=== PATIENT | female | born 1955 | race Caucasian/White ===

== ENCOUNTER 2017-10-31 14:14 | Inpatient (IN) | payer BC ==
[2017-10-31] MEDS ORDERED: 0.9 % SODIUM CHLORIDE 1000ML 1,000 ML IV PRN (15:19)
--- NOTE | 2017-10-31 15:23 | Emergency Department Record ---
History of Present Illness - General Chief Complaint: Abdominal Pain Stated Complaint: DIVERTICULITIS FLAIR UP, DIZINESS,SPOTS IN EYS Time Seen by Provider: 10/31/17 15:08 Source: Patient, RN notes reviewed Mode of Arrival: Ambulatory - History of Present Illness Initial Comments: left lower quad pain and history of diverticulitis. Onset/Timin -: Days(s) Location: LLQ Radiation: RLQ Severity: Moderate Severity scale (1-10): 8 Quality: Sharp Consistency: Constant Improves With: Nothing Worsens With: Nothing Associated Symptoms: Chills, Nausea - Related Data Allergies Allergy/AdvReac Type Severity Reaction Status Date / Time atorvastatin calcium Allergy Severe chest pain Verified 10/31/17 14:28 [From Lipitor] clindamycin Allergy Severe HIVES Verified 10/31/17 14:28 penicillin V Allergy Severe ANAPHYLAXIS Verified 10/31/17 14:28 codeine Allergy Intermediate RASH Verified 10/31/17 14:28 naproxen Allergy Intermediate RASH Verified 10/31/17 14:28 lisinopril Allergy Mild DESHAWN COUGH Verified 10/31/17 14:28 ciprofloxacin [From Cipro] Allergy RASH Verified 10/31/17 16:50 SSRIs Allergy Intermediate NAUSEA Uncoded 10/04/14 09:12 Travel Screening - Travel/Exposure Within Last 30 Days Have you traveled within the last 30 days?: No Review of Systems Reviewed: No additional complaints except as noted below Constitutional: Reports: As per HPI. Denies: Chills, Fever, Malaise, Night sweats, Weakness, Weight change Eyes: Reports: As per HPI. Denies: Eye discharge, Eye pain, Photophobia, Vision change ENT: Reports: As per HPI. Denies: Congestion, Dental pain, Ear pain, Epistaxis , Hearing loss, Throat pain Respiratory: Reports: As per HPI. Denies: Cough, Dyspnea, Hemoptysis, Stridor, Wheezes Cardiovascular: Reports: As per HPI. Denies: Arrhythmia, Chest pain, Dyspnea on exertion, Edema, Murmurs, Orthopnea, Palpitations, Paroxysmal nocturnal dyspnea, Rheumatic Fever, Syncope Endocrine: Reports: As per HPI. Denies: Fatigue, Heat or cold intolerance, Polydipsia, Polyuria Gastrointestinal: Reports: As per HPI, Abdominal pain. Denies: Constipation, Diarrhea, Hematemesis, Hematochezia, Melena, Nausea, Vomiting Genitourinary: Reports: As per HPI. Denies: Abnormal menses, Discharge, Dyspareunia, Dysuria, Frequency, Hematuria, Incontinence, Retention, Urgency Musculoskeletal: Reports: As per HPI. Denies: Arthralgia, Back pain, Gout, Joint swelling, Myalgia, Neck pain Skin: Reports: As per HPI. Denies: Bruising, Change in color, Change in hair/ nails, Lesions, Pruritus, Rash Neurological: Reports: As per HPI. Denies: Abnormal gait, Confusion, Headache, Numbness, Paresthesias, Seizure, Tingling, Tremors, Vertigo, Weakness Psychiatric: Reports: As per HPI. Denies: Anxiety, Auditory hallucinations, Depression, Homicidal thoughts, Suicidal thoughts, Visual hallucinations Hematological/Lymphatic: Reports: As per HPI. Denies: Anemia, Blood Clots, Easy bleeding, Easy bruising, Swollen glands Past Medical History - SOCIAL HISTORY Smoking Status: Never smoker Alcohol Use: None Drug Use: None - RESPIRATORY Hx Respiratory Disorders: No Comment:: uses inhaler prn due to second hand smoke - CARDIOVASCULAR Hx Cardio Disorders: Yes Hx Edema: Yes Hx Hypertension: Yes - NEURO Hx Neuro Disorders: Yes Hx Seizures: Yes - GI Hx GI Disorders: Yes Hx Diverticulitis: Yes Hx Reflux: Yes Hx Irritable Bowel: Yes - Hx Genitourinary Disorders: No - ENDOCRINE Hx Endocrine Disorders: No - MUSCULOSKELETAL Hx Musculoskeletal Disorders: Yes Hx Arthritis: Yes - PSYCH Hx Psych Problems: Yes Hx Anxiety: Yes - HEMATOLOGY/ONCOLOGY Hx Hematology/Oncology Disorders: No Family Medical History Any Significant Family History?: Yes Hx Cancer: Father, Mother Physical Exam - General General Appearance: Alert, Oriented x3, Cooperative, No acute distress - Head Head exam: Normal inspection - Eye Eye exam: Normal appearance, PERRL Pupils: Normal accommodation - ENT ENT exam: Normal exam, Mucous membranes moist, Normal external ear exam, Normal orophraynx, TM's normal bilaterally Ear exam: Normal external inspection. negative: External canal tenderness Nasal Exam: Normal inspection. negative: Discharge, Sinus tenderness Mouth exam: Normal external inspection, Tongue normal Teeth exam: Normal inspection. negative: Dental caries Throat exam: Normal inspection. negative: Tonsillar erythema, Tonsillar exudate - Neck Neck exam: Normal inspection, Full ROM. negative: Tenderness - Respiratory Respiratory exam: Normal lung sounds bilaterally. negative: Respiratory distress - Cardiovascular Cardiovascular Exam: Regular rate, Normal rhythm, Normal heart sounds - GI/Abdominal GI/Abdominal exam: Soft, Normal bowel sounds, Tenderness (left lower quad) - Rectal Rectal exam: Deferred - exam: Deferred - Extremities Extremities exam: Normal inspection, Full ROM, Normal capillary refill. negative: Tenderness - Back Back exam: Reports: Normal inspection, Full ROM. Denies: Muscle spasm, Rash noted, Tenderness - Neurological Neurological exam: Alert, Normal gait, Oriented X3, Reflexes normal - Psychiatric Psychiatric exam: Normal affect, Normal mood - Skin Skin exam: Dry, Intact, Normal color, Warm Course Vital Signs 10/31/17 14:23 Temperature 97.5 F L Pulse Rate 91 H Respiratory 18 Rate Blood Pressure 138/73 Pulse Ox 96 - Reevaluation(s) Reevaluation #1: discussed case with [facility] and will admit to Dr. Valencia 10/31/17 16:55 Medical Decision Making - Data Complexity MDM Data: Labs Ordered and/or Reviewed (K 3.2), X-Ray Ordered and/or Reviewed ( CT shows diverticulitis) - Lab Data Result diagrams: 10/31/17 14:40 10/31/17 14:40 Disposition Clinical Impression: Diverticulitis Decision to Admit: Admit from ER Condition: (1) Good Forms: Patient Portal Access Time of Disposition: 16:56 Quality - Quality Measures Quality Measures: N/A - Blood Pressure Screening Does Patient Have Any of the Following: No Blood Pressure Classification: Pre-Hypertensive BP Reading Systolic Measurement: 138 Diastolic Measurement: 73 Screening for High Blood Pressure: < Pre-Hypertensive BP, F/U Documented > [ [id number]] Pre-Hypertensive Follow-up Interventions: Referral to alternative/primary care provider.
[2017-10-31 15:28] LABS: BASO % 0.2 % (0-6); EOS % 0.9 % (0-6); GRAN % 67.7 % (47-80); HEMATOCRIT 41.4 % (35.0-47.0); HEMOGLOBIN 13.4 gm/dl (11.6-16.0); LYMPH % 22.3 % (16-45); MEAN CORPUSCULAR HEMOGLOBIN 29.1 pg (27-33); MEAN CORPUSCULAR HGB CONC 32.4 g/dl (32-36); MEAN PLATELET VOLUME 11.5 fl (7.4-10.4); MONO % 8.9 % (0-9); PLATELET COUNT 261 K/uL (130-400); RED CELL DISTRIBUTION WIDTH 13.2 % (11.5-14.5); WHITE BLOOD COUNT W/O DIFF 12.2 K/uL (4.2-12.2)
[2017-10-31 15:31] LABS: URINE APPEARANCE CLEAR; URINE BILIRUBIN NEGATIVE (NEGATIVE); URINE BLOOD NEGATIVE (NEGATIVE); URINE COLOR YELLOW; URINE GLUCOSE (UA) NEGATIVE (NEGATIVE); URINE KETONE NEGATIVE (NEGATIVE); URINE LEUKOCYTE ESTERASE NEGATIVE (NEGATIVE); URINE NITRITE NEGATIVE (NEGATIVE); URINE PROTEIN NEGATIVE (NEGATIVE); URINE UROBILINOGEN 0.2 E.U./dL (0.20 - 1.00)
[2017-10-31 15:41] LABS: BLOOD UREA NITROGEN 7 mg/dL (8-23); CREATININE 0.5 mg/dL (0.5-0.9); EST GLOMERULAR FILTRATION RATE > 60 mL/min
[2017-10-31 15:42] LABS: TOTAL PROTEIN 7.5 g/dL (6.6-8.7)
[2017-10-31 15:44] LABS: GLUCOSE,RANDOM 91 mg/dL (74-109)
[2017-10-31 15:46] LABS: ALBUMIN 4.4 g/dL (4.0-5.0); ALKALINE PHOSPHATASE 77 U/L (35-104); ALT/SGPT 10 U/L (<33); AST/SGOT 11 U/L (10.0-35.0); BILIRUBIN,DIRECT 0.3 mg/dL (0-0.3)
[2017-10-31 15:47] LABS: LIPASE 27 U/L (13-60)
[2017-10-31] MEDS ORDERED: METRONIDAZOLE IVPB 500 MG/100 ML BAG IVPB ONE (16:28)
[2017-10-31] MEDS ORDERED: CIPROFLOXACIN LACTATE/D5W 400 MG/200 ML BAG IVPB ONE (16:28)
[2017-10-31] MEDS ORDERED: ERTAPENEM SODIUM 1 G in 0.9 % SODIUM CHLORIDE 100ML 100 ML IVPB ONE (16:42)
[2017-10-31] MEDS ORDERED: ACETAMINOPHEN 500 MG TABLET PO ONE (16:43)
[2017-10-31] MEDS ORDERED: POTASSIUM CHLORIDE 20 MEQ TABLET PO ONE (16:53)
[2017-10-31] MEDS ORDERED: ERTAPENEM SODIUM 1 G in 0.9 % SODIUM CHLORIDE 100ML 100 ML IVPB SCH (17:46)
[2017-10-31] MEDS ORDERED: ONDANSETRON HCL IV 4 MG/2 ML VIAL IVP PRN (17:46)
[2017-10-31] MEDS ORDERED: MORPHINE SULFATE 10 MG/ML VIAL IVP PRN (17:46)
[2017-10-31] MEDS: 0.9 % SODIUM CHLORIDE 1000ML 1,000 ML IV PRN (18:16)
[2017-10-31] MEDS: SIMVASTATIN 20 MG TABLET PO SCH (21:45)
[2017-10-31] MEDS ORDERED: METRONIDAZOLE IVPB 500 MG/100 ML BAG IVPB SCH (22:00)
[2017-10-31] MEDS ORDERED: RANITIDINE HCL 150 MG TABLET PO SCH (22:00)
[2017-10-31] MEDS: DIPHENHYDRAMINE HCL 25 MG CAPSULE PO PRN (23:26)
[2017-11-01] MEDS: ACETAMINOPHEN 500 MG TABLET PO PRN ×4 (01:01→17:57)
[2017-11-01] MEDS ORDERED: METRONIDAZOLE IVPB 500 MG/100 ML BAG IVPB SCH (02:00)
[2017-11-01 06:29] LABS: BASO % 0.5 % (0-6); EOS % 3.3 % (0-6); GRAN % 51.6 % (47-80); HEMATOCRIT 35.6 % (35.0-47.0); HEMOGLOBIN 11.1 gm/dl (11.6-16.0); LYMPH % 36.5 % (16-45); MEAN CORPUSCULAR HGB CONC 31.2 g/dl (32-36); MEAN PLATELET VOLUME 11.2 fl (7.4-10.4); MONO % 8.1 % (0-9); PLATELET COUNT 203 K/uL (130-400); RED BLOOD COUNT 3.87 M/uL (3.80-5.40); RED CELL DISTRIBUTION WIDTH 13.1 % (11.5-14.5); WHITE BLOOD COUNT W/O DIFF 6.4 K/uL (4.2-12.2)
[2017-11-01 06:37] LABS: MEAN CORPUSCULAR HEMOGLOBIN 28.6 pg (27-33)
[2017-11-01] MEDS: PANTOPRAZOLE SODIUM 40 MG TABLET PO SCH (06:52)
[2017-11-01] MEDS: 0.9 % SODIUM CHLORIDE 1000ML 1,000 ML IV PRN ×2 (06:54→17:42)
[2017-11-01 06:58] LABS: BLOOD UREA NITROGEN 6 mg/dL (8-23); CREATININE 0.5 mg/dL (0.5-0.9); EST GLOMERULAR FILTRATION RATE > 60 mL/min; GLUCOSE,RANDOM 87 mg/dL (74-109)
--- NOTE | 2017-11-01 07:34 | CT SCAN REPORT ---
EXAM: CT SCAN OF THE ABDOMEN AND PELVIS HISTORY: PATIENT HAS LEFT LOWER QUADRANT ABDOMINAL PAIN. TECHNIQUE: Serial axial CT scan of the abdomen and pelvis was performed at 2.5 mm intervals from the dome of the diaphragm down to the pubic symphysis without the use of intravenous or oral contrast. No comparison CT's are available. FINDINGS: The lung windows of the lung bases demonstrate no CT evidence of a focal infiltrate or pleural effusion. Nonspecific 4 mm nodule is noted within the right posterior costophrenic angle. Follow-up CT scan of the chest can be obtained to document stability of finding in six months. The visualized heart size and contour is within normal limits. Moderate sized hiatal hernia is noted. The liver, spleen, pancreas, and adrenal glands are unremarkable. The gallbladder demonstrates a dependent gallstone without CT evidence of cholecystitis. The bilateral kidneys demonstrate no CT evidence of hydronephrosis or hydroureter. No renal or ureteral calculi are noted. The contour and caliber of the noncontrasted abdominal aorta is within normal limits. There is no CT evidence of retroperitoneal, pelvic, or inguinal lymphadenopathy. The bowel gas pattern is nonobstructive. Numerous colonic diverticula are noted. There is moderate pericolonic fat stranding identified within the mid proximal sigmoid colon. These findings are compatible with acute diverticulitis. A small amount of fluid is identified within the left hemipelvis and posterior cul-de-sac which is likely the result of this diverticulitis. No obvious microperforation is noted. There is no CT evidence of free intraperitoneal air. No focal peridiverticular abscess is identified. The urinary bladder is decompressed. The uterus is unremarkable. Bone windows demonstrate no CT evidence of a fracture or dislocation of the visualized osseous structures. IMPRESSION: 1. FINDINGS COMPATIBLE WITH AN ACUTE DIVERTICULITIS OF THE SIGMOID COLON DISCUSSED ABOVE. 2. MODERATE SIZED HIATAL HERNIA. JOB NUMBER: [id number] [facility]
--- NOTE | 2017-11-01 08:27 | History & Physical ---
History of Present Illness - Date of Service Date of Service for History & Physical: 11/01/17 - History of Present Illness Admitting Diagnosis: acute diverticulitis History of Present Illness: Mrs. Mackey is a 61 year-old female who presented to the ED on 10/31/17 with c/o left lower quadrant abdominal pain, chills, and nausea. Her history included diverticulitis, HTN, seizures, IBS, GERD, hyperlipidemia, arthritis, second-hand smoke exposure, and anxiety. In the ED, her vital signs and labs were unremarkable. UA negative. Abdominal CT demonstrated acute diverticulitis of the sigmoid colon. A nonspecific 4mm nodule was seen in her right posterior costophrenic angle- f/u CT in 6 months was recommended to monitor stability. She was admitted for management of diverticulitis with IV antibiotics and pain management. 11/01/17 0900: Pt. is resting in bed. She states her LLQ pain is a 7/10. She reports that morphine gave her a headache and tylenol was ineffective. She states that she is tolerating clears, but experiencing worse pain when she passes gas. She states she has not had a bm since Monday 10/30. She states that she has had several flares of her diverticulitis over the last 10 years and she is not established with GI. Will order 0.5mg dilaudid IVP q4h prn pain. Will continue IVF 0.9%NS 100ml/hr. Continue Invanz 1gm IV q24h. Continue clear fluids. Plan GI consult today- Dr. Matta. Travel Screening - Travel/Exposure Within Last 30 Days Have you traveled within the last 30 days?: No - Travel/Exposure Within Last Year Have you traveled outside the [place] in the last year?: No - Additonal Travel Details Have you been exposed to anyone with a communicable illness?: No - Travel Symptoms Symptom Screening: Diarrhea Review of Systems Constitutional: Reports: As per HPI. Denies: Chills, Fever, Malaise, Night sweats, Weakness, Weight change Eyes: Reports: As per HPI. Denies: Eye discharge, Eye pain, Photophobia, Vision change ENT: Reports: As per HPI. Denies: Congestion, Dental pain, Ear pain, Epistaxis , Hearing loss, Throat pain Respiratory: Reports: As per HPI. Denies: Cough, Dyspnea, Hemoptysis, Stridor, Wheezes Cardiovascular: Reports: As per HPI. Denies: Arrhythmia, Chest pain, Dyspnea on exertion, Edema, Murmurs, Orthopnea, Palpitations, Paroxysmal nocturnal dyspnea, Rheumatic Fever, Syncope Endocrine: Reports: As per HPI. Denies: Fatigue, Heat or cold intolerance, Polydipsia, Polyuria Gastrointestinal: Reports: As per HPI, Abdominal pain. Denies: Constipation, Diarrhea, Hematemesis, Hematochezia, Melena, Nausea, Vomiting Genitourinary: Reports: As per HPI. Denies: Abnormal menses, Discharge, Dyspareunia, Dysuria, Frequency, Hematuria, Incontinence, Retention, Urgency Musculoskeletal: Reports: As per HPI. Denies: Arthralgia, Back pain, Gout, Joint swelling, Myalgia, Neck pain Skin: Reports: As per HPI. Denies: Bruising, Change in color, Change in hair/ nails, Lesions, Pruritus, Rash Neurological: Reports: As per HPI. Denies: Abnormal gait, Confusion, Headache, Numbness, Paresthesias, Seizure, Tingling, Tremors, Vertigo, Weakness Psychiatric: Reports: As per HPI. Denies: Anxiety, Auditory hallucinations, Depression, Homicidal thoughts, Suicidal thoughts, Visual hallucinations Hematological/Lymphatic: Reports: As per HPI. Denies: Anemia, Blood Clots, Easy bleeding, Easy bruising, Swollen glands Past Medical History - SOCIAL HISTORY Smoking Status: Never smoker Alcohol Use: Rare Drug Use: None - RESPIRATORY Hx Respiratory Disorders: No Comment:: uses inhaler prn due to second hand smoke - CARDIOVASCULAR Hx Cardio Disorders: Yes Hx Edema: Yes Hx Hypertension: Yes - NEURO Hx Neuro Disorders: Yes Hx Seizures: Yes - GI Hx GI Disorders: Yes Hx Diverticulitis: Yes Hx Reflux: Yes Hx Irritable Bowel: Yes - Hx Genitourinary Disorders: No - ENDOCRINE Hx Endocrine Disorders: No - MUSCULOSKELETAL Hx Musculoskeletal Disorders: Yes Hx Arthritis: Yes - PSYCH Hx Psych Problems: Yes Hx Anxiety: Yes - HEMATOLOGY/ONCOLOGY Hx Hematology/Oncology Disorders: No Family Medical History Any Significant Family History?: Yes Hx Cancer: Father, Mother H&P Meds/Allergies - Allergies Allergies: Allergies Allergy/AdvReac Type Severity Reaction Status Date / Time atorvastatin calcium Allergy Severe chest pain Verified 10/31/17 14:28 [From Lipitor] clindamycin Allergy Severe HIVES Verified 10/31/17 14:28 penicillin V Allergy Severe ANAPHYLAXIS Verified 10/31/17 14:28 codeine Allergy Intermediate RASH Verified 10/31/17 14:28 naproxen Allergy Intermediate RASH Verified 10/31/17 14:28 lisinopril Allergy Mild DESHAWN COUGH Verified 10/31/17 14:28 ciprofloxacin [From Cipro] Allergy RASH Verified 10/31/17 16:50 SSRIs Allergy Intermediate NAUSEA Uncoded 10/04/14 09:12 - Active Medications Active Medications: Current Medications Acetaminophen (Tylenol 500mg Tab) 1,000 mg PO Q6H PRN PRN Reason: PAIN - MILD(1-4)/FEVER Last Admin: 11/01/17 06:58 Dose: 1,000 mg Aspirin (Ecotrin (Ec)) 81 mg PO DAILY PENDING SALE TO [facility] Diphenhydramine HCl (Benadryl Capsule) 50 mg PO QHS PRN PRN Reason: SLEEP Last Admin: 10/31/17 23:26 Dose: 50 mg Enoxaparin Sodium (Lovenox) 40 mg SC DAILY PENDING SALE TO [facility] Fluticasone Propionate (Flonase) 2 spray NA DAILY PENDING SALE TO [facility] Sodium Chloride () 1,000 mls @ 100 mls/hr IV .Q10H PRN PRN Reason: LARGE VOLUME IV Last Admin: 11/01/17 06:54 Dose: 100 mls/hr Ertapenem 1 g/ Sodium Chloride 100 mls @ 200 mls/hr IVPB Q24H PENDING SALE TO [facility] Metronidazole/Sodium Chloride (Flagyl) 500 mg in 100 mls @ 100 mls/hr IVPB Q8H PENDING SALE TO [facility] Stop: 11/06/17 02:01 Last Infusion: 11/01/17 03:55 Dose: Infused Loratadine (Claritin) 10 mg PO DAILY PENDING SALE TO [facility] Losartan Potassium (Cozaar) 50 mg PO DAILY PENDING SALE TO [facility] Morphine Sulfate (Morphine Sulfate) 2 mg IVP Q4H PRN PRN Reason: ANALGESIA Last Admin: 10/31/17 21:46 Dose: 2 mg Ondansetron HCl (Zofran) 4 mg IVP Q4H PRN PRN Reason: NAUSEA Last Admin: 10/31/17 19:12 Dose: 4 mg [facility] Last Admin: 11/01/17 06:52 Dose: 40 mg Ranitidine HCl (Zantac) 150 mg PO BID PENDING SALE TO [facility] Last Admin: 10/31/17 21:45 Dose: 150 mg Simvastatin (Zocor) 20 mg PO QHS PENDING SALE TO [facility] Last Admin: 10/31/17 21:45 Dose: 20 mg Physical Exam - Vital Signs Vital Signs: Vital Signs - Last 24 Hrs Temp Pulse Pulse Pulse Resp BP BP 11/01/17 07:57 68 18 11/01/17 06:00 98.0 F 76 16 110/60 11/01/17 02:00 98.2 F 10/31/17 21:26 98.8 F 16 L 16 128/70 10/31/17 18:57 78 18 10/31/17 17:46 98.5 F 78 18 151/83 10/31/17 16:52 83 18 138/71 10/31/17 14:23 97.5 F L 91 H 18 138/73 Pulse Ox 11/01/17 07:57 11/01/17 06:00 94 L 11/01/17 02:00 10/31/17 21:26 97 10/31/17 18:57 10/31/17 17:46 95 10/31/17 16:52 97 10/31/17 14:23 96 - General General Appearance: Alert, Oriented x3, Cooperative, Mild distress - Head Head exam: Normal inspection - Eye Eye exam: Normal appearance, PERRL Pupils: Normal accommodation - ENT ENT exam: Normal exam, Mucous membranes moist, Normal external ear exam, Normal orophraynx, TM's normal bilaterally Ear exam: Normal external inspection. negative: External canal tenderness Nasal Exam: Normal inspection. negative: Discharge, Sinus tenderness Mouth exam: Normal external inspection, Tongue normal Teeth exam: Normal inspection. negative: Dental caries Throat exam: Normal inspection. negative: Tonsillar erythema, Tonsillar exudate - Neck Neck exam: Normal inspection, Full ROM. negative: Tenderness - Respiratory Respiratory exam: Normal lung sounds bilaterally. negative: Respiratory distress - Cardiovascular Cardiovascular Exam: Regular rate, Normal rhythm, Normal heart sounds - GI/Abdominal GI/Abdominal exam: Soft, Normal bowel sounds, Tenderness (left lower quad) - Rectal Rectal exam: Deferred - exam: Deferred - Extremities Extremities exam: Normal inspection, Full ROM, Normal capillary refill. negative: Tenderness - Back Back exam: Reports: Normal inspection, Full ROM. Denies: Muscle spasm, Rash noted, Tenderness - Neurological Neurological exam: Alert, Normal gait, Oriented X3, Reflexes normal - Psychiatric Psychiatric exam: Normal affect, Normal mood - Skin Skin exam: Dry, Intact, Normal color, Warm Results - Labs Result Diagrams: 11/01/17 06:19 11/01/17 06:19 Labs Last 24 Hours: Laboratory Results - last 24 hr 10/31/17 10/31/17 10/31/17 14:40 14:40 14:40 WBC 12.2 RBC 4.60 Hgb 13.4 Hct 41.4 MCV 90.0 MCH 29.1 MCHC 32.4 RDW 13.2 Plt Count 261 MPV 11.5 H Gran % 67.7 Lymphocytes % 22.3 Monocytes % 8.9 Eosinophils % 0.9 Basophils % 0.2 Sodium 140 Potassium 3.2 L Chloride 100 Carbon Dioxide 26.0 Anion Gap 14.0 BUN 7 L Creatinine 0.5 Estimated GFR > 60 Random Glucose 91 Calcium 9.1 Total Bilirubin 1.70 H Direct Bilirubin 0.3 AST 11 ALT 10 Alkaline Phosphatase 77 Total Protein 7.5 Albumin 4.4 Lipase 27 Urine Color Yellow Urine Appearance Clear Urine pH 7.0 Ur Specific [place] 1.010 Urine Protein Negative Urine Glucose (UA) Negative Urine Ketones Negative Urine Blood Negative Urine Nitrite Negative Urine Bilirubin Negative Urine Urobilinogen 0.2 Ur Leukocyte Esterase Negative 11/01/17 11/01/17 06:19 06:19 WBC 6.4 RBC 3.87 Hgb 11.1 L Hct 35.6 MCV 92.0 MCH 28.6 MCHC 31.2 L RDW 13.1 Plt Count 203 MPV 11.2 H Gran % 51.6 Lymphocytes % 36.5 Monocytes % 8.1 Eosinophils % 3.3 Basophils % 0.5 Sodium 143 Potassium 3.5 Chloride 106 Carbon Dioxide 24.0 Anion Gap 13.0 BUN 6 L Creatinine 0.5 Estimated GFR > 60 Random Glucose 87 Calcium 8.4 L Total Bilirubin Direct Bilirubin AST ALT Alkaline Phosphatase Total Protein Albumin Lipase Urine Color Urine Appearance Urine pH Ur Specific [place] Urine Protein Urine Glucose (UA) Urine Ketones Urine Blood Urine Nitrite Urine Bilirubin Urine Urobilinogen Ur Leukocyte Esterase - Imaging and Cardiology CT scan - abdomen Status: Report reviewed (Sigmoid diverticulitis) VTE H&P Assessment - Risk for VTE Risk for VTE: Yes Risk Level: Low Risk Assessment Date: 11/01/17 Risk Assessment Time: 08:29 VTE Orders Placed or Will Be Placed: Yes Plan - Inpatient Certification Inpatient Certification: Admit to inpatient care: Based on my medical assessment, after consideration of patient's risk factors (age, co-morbidities and patient presenting symptoms and acuity), I expect that this patient will remain in the hospital greater than or equal to two midnights and that the services needed warrant inpatient care because: Patient Risk Factors: [Age, comorbidities] Estimated length of stay: [48-96 hours] The patient may reasonably be expected to be discharged or transferred to a hospital within 96 hours after admission to [facility]. Services needed: [IV abx, GI consult] Post hospital care (if known): [] I certify that my determination is in accordance with my understanding of Medicare requirements for reasonable and necessary inpatient services. 11/01/17 08:29 - Detailed Diagnosis and Plan (1) Diverticulitis Current Visit: Yes Status: Acute Base Code: K57.92 - DVTRCLI OF INTEST, PART UNSP, W/O PERF OR ABSCESS W/O BLEED Comment: 11/01/17: -Sigmoid diverticulitis demonstrated on abdomen/pelvic CT from 10/31/17 -Invanz 1g q24h (d/c'd flagyl per pharmacy, not necessary with invanz coverage) -0.5mg Dilaudid IVP q4h prn and 1000mg tylenol q6h prn for pain management -Clear liquid diet, prn zofran for nausea -GI consult ordered (2) Nodule of right lung Current Visit: Yes Status: Acute Base Code: R91.1 - SOLITARY PULMONARY NODULE Comment: 11/01/17: -4mm nodule noted in right posterior costophrenic angle on CT -Recommend f/u CT of chest in 6 months to evaluate stability (3) At risk for deep venous thrombosis Current Visit: Yes Status: Acute Base Code: Z91.89 - OTH PERSONAL RISK FACTORS, NOT ELSEWHERE CLASSIFIED Comment: 11/01/17: -Lovenox 40mg SC qhs for DVT prophylaxis (4) Full code status Current Visit: Yes Status: Acute Base Code: Z78.9 - OTHER SPECIFIED HEALTH STATUS Comment: 11/01/17: -Pt. is a full code
[2017-11-01] MEDS ORDERED: HYDROMORPHONE HCL 2 MG/ML VIAL IVP PRN (09:19)
[2017-11-01] MEDS: LORATADINE 10 MG TABLET PO SCH (09:25)
[2017-11-01] MEDS ORDERED: RANITIDINE HCL 150 MG TABLET PO PRN (09:25)
[2017-11-01] MEDS: ASPIRIN 81 MG TABEC PO SCH (09:26)
[2017-11-01] MEDS: ENOXAPARIN 40 MG/0.4 ML SYR SC SCH (09:26)
[2017-11-01] MEDS: FLUTICASONE PROPIONATE 50MCG NASAL 16 GM BTL SCH (09:26)
[2017-11-01] MEDS: LOSARTAN POTASSIUM 25 MG TABLET PO SCH (09:26)
[2017-11-01] MEDS: ERTAPENEM SODIUM 1 G in 0.9 % SODIUM CHLORIDE 100ML 100 ML IVPB SCH (15:15)
[2017-11-01] MEDS ORDERED: KETOROLAC 30 MG/ML VIAL IVP ONE (19:53)
[2017-11-01] MEDS: IBUPROFEN 200 MG TABLET PO PRN (20:15)
[2017-11-01] MEDS: DIPHENHYDRAMINE HCL 25 MG CAPSULE PO PRN (21:23)
[2017-11-01] MEDS: SIMVASTATIN 20 MG TABLET PO SCH (21:23)
[2017-11-02] MEDS: ACETAMINOPHEN 500 MG TABLET PO PRN ×2 (00:50→09:17)
[2017-11-02 06:28] LABS: GRAN % 43.5 % (47-80); HEMATOCRIT 36.1 % (35.0-47.0); HEMOGLOBIN 11.3 gm/dl (11.6-16.0); LYMPH % 43.2 % (16-45); MEAN CELL VOLUME 90.7 fl (81-97); MEAN CORPUSCULAR HGB CONC 31.3 g/dl (32-36); MEAN PLATELET VOLUME 11.2 fl (7.4-10.4); MONO % 7.3 % (0-9); PLATELET COUNT 217 K/uL (130-400); RED BLOOD COUNT 3.98 M/uL (3.80-5.40); RED CELL DISTRIBUTION WIDTH 12.8 % (11.5-14.5); WHITE BLOOD COUNT W/O DIFF 5.2 K/uL (4.2-12.2)
[2017-11-02 06:33] LABS: MEAN CORPUSCULAR HEMOGLOBIN 28.3 pg (27-33)
[2017-11-02 06:51] LABS: ALB/GLOB RATIO 1.6 (1.1-1.8); ALBUMIN 3.6 g/dL (4.0-5.0); ALKALINE PHOSPHATASE 79 U/L (35-104); ALT/SGPT 16 U/L (<33); AST/SGOT 20 U/L (10.0-35.0); BLOOD UREA NITROGEN 5 mg/dL (8-23); CREATININE 0.5 mg/dL (0.5-0.9); EST GLOMERULAR FILTRATION RATE > 60 mL/min; GLUCOSE,RANDOM 94 mg/dL (74-109); TOTAL PROTEIN 5.9 g/dL (6.6-8.7)
[2017-11-02] MEDS: PANTOPRAZOLE SODIUM 40 MG TABLET PO SCH (06:58)
[2017-11-02] MEDS: IBUPROFEN 200 MG TABLET PO PRN ×2 (06:59→18:46)
[2017-11-02] MEDS: ASPIRIN 81 MG TABEC PO SCH (09:14)
[2017-11-02] MEDS: LORATADINE 10 MG TABLET PO SCH (09:14)
[2017-11-02] MEDS: ENOXAPARIN 40 MG/0.4 ML SYR SC SCH (09:14)
[2017-11-02] MEDS: LOSARTAN POTASSIUM 25 MG TABLET PO SCH (09:14)
[2017-11-02] MEDS: FLUTICASONE PROPIONATE 50MCG NASAL 16 GM BTL SCH (09:16)
--- NOTE | 2017-11-02 11:39 | Physician Progress Note ---
Subjective - Date Date of Physician Progress Note: 11/02/17 - Subjective Subjective Comment: Nursing reports continued loose stool through the night and intermittent abdominal pain with stooling. No new onset fevers. Had developed headache since using morphine in ED. Has not tried Toradol for fear of making her feel "whoozie ". Patient reports abdominal pain is 4-5/10 and is improved from ED but reports increase in diarrhea, is having loose stool every time after eating. No blood or mucus in stool. Denies nausea or vomiting. Has been ambulating to the BR without issue. Objective - Vital Signs Vital Signs: Vital Signs - Last 24 Hrs Temp Pulse Pulse Resp BP BP Pulse Ox 11/02/17 10:00 98.0 F 71 16 133/75 94 L 11/02/17 09:00 68 16 11/02/17 06:00 98.0 F 66 16 118/73 95 11/01/17 22:00 98.5 F 67 16 135/74 96 11/01/17 18:00 98.1 F 72 16 132/76 98 11/01/17 14:00 98.3 F 70 16 129/72 99 - General General Appearance: Alert, Oriented x3, Cooperative, Mild distress - Head Head exam: Normal inspection - Eye Eye exam: Normal appearance, PERRL Pupils: Normal accommodation - ENT ENT exam: Normal exam, Mucous membranes moist, Normal external ear exam, Normal orophraynx, TM's normal bilaterally Ear exam: Normal external inspection. negative: External canal tenderness Nasal Exam: Normal inspection. negative: Discharge, Sinus tenderness Mouth exam: Normal external inspection, Tongue normal Teeth exam: Normal inspection. negative: Dental caries Throat exam: Normal inspection. negative: Tonsillar erythema, Tonsillar exudate - Neck Neck exam: Normal inspection, Full ROM. negative: Tenderness - Respiratory Respiratory exam: Normal lung sounds bilaterally. negative: Respiratory distress - Cardiovascular Cardiovascular Exam: Regular rate, Normal rhythm, Normal heart sounds - GI/Abdominal GI/Abdominal exam: Soft, Normal bowel sounds, Tenderness (left lower quad, mild epigastric) - Rectal Rectal exam: Deferred - exam: Deferred - Extremities Extremities exam: Normal inspection, Full ROM, Normal capillary refill. negative: Tenderness - Back Back exam: Reports: Normal inspection, Full ROM. Denies: Muscle spasm, Rash noted, Tenderness - Neurological Neurological exam: Alert, Normal gait, Oriented X3, Reflexes normal - Psychiatric Psychiatric exam: Normal affect, Normal mood - Skin Skin exam: Dry, Intact, Normal color, Warm Assessment and Plan - Assessment and Plan (1) Diverticulitis Current Visit: Yes Status: Acute Base Code: K57.92 - DVTRCLI OF INTEST, PART UNSP, W/O PERF OR ABSCESS W/O BLEED Comment: 11/02/17: -Sigmoid diverticulitis demonstrated on abdomen/pelvic CT from 10/31/17 -Invanz 1g q24h (d/c'd flagyl per pharmacy, not necessary with invanz coverage) -0.5mg Dilaudid IVP q4h prn and 1000mg tylenol q6h prn for pain management -diet advanced to regular, tolerating PO intake but increase in loose stools, prn zofran for nausea -GI consult ordered, plan to follow up as outpatient 11/29 as long as she is recovering without complication - metamucil daily for increase loose stools - stool for c-diff stat for acute increased loose stools since antibiotic use (2) Nodule of right lung Current Visit: Yes Status: Acute Base Code: R91.1 - SOLITARY PULMONARY NODULE Comment: 11/01/17: -4mm nodule noted in right posterior costophrenic angle on CT -Recommend f/u CT of chest in 6 months or sooner to evaluate stability - recommend CT chest at PCP follow up as nodule was incidental finding on abd CT - patient aware and agrees with follow up plan (3) At risk for deep venous thrombosis Current Visit: Yes Status: Acute Base Code: Z91.89 - OTH PERSONAL RISK FACTORS, NOT ELSEWHERE CLASSIFIED Comment: 11/02/17: -Lovenox 40mg SC qhs for DVT prophylaxis (4) Full code status Current Visit: Yes Status: Acute Base Code: Z78.9 - OTHER SPECIFIED HEALTH STATUS Comment: 11/02/17: -Pt. is a full code Results - Labs Result Diagrams: 11/02/17 06:21 11/02/17 06:21 Labs Last 24 Hours: Laboratory Results - last 24 hr 11/02/17 11/02/17 06:21 06:21 WBC 5.2 RBC 3.98 Hgb 11.3 L Hct 36.1 MCV 90.7 MCH 28.3 MCHC 31.3 L RDW 12.8 Plt Count 217 MPV 11.2 H Gran % 43.5 L Lymphocytes % 43.2 Monocytes % 7.3 Eosinophils % 5.0 Basophils % 1.0 Sodium 143 Potassium 3.8 Chloride 107 Carbon Dioxide 26.0 Anion Gap 10.0 BUN 5 L Creatinine 0.5 Estimated GFR > 60 Random Glucose 94 Calcium 8.4 L Total Bilirubin 0.70 AST 20 ALT 16 Alkaline Phosphatase 79 Total Protein 5.9 L Albumin 3.6 L Globulin 2.3 Albumin/Globulin Ratio 1.6 DVT/PE Assessment - Risk for VTE Risk for VTE: No Risk Level: Low Risk Assessment Date: 11/01/17 Risk Assessment Time: 08:29 VTE Orders Placed or Will Be Placed: Yes - Active Medicaitons Current Medications: Current Medications Acetaminophen (Tylenol 500mg Tab) 1,000 mg PO Q6H PRN PRN Reason: PAIN - MILD(1-4)/FEVER Last Admin: 11/02/17 09:17 Dose: 1,000 mg Aspirin (Ecotrin (Ec)) 81 mg PO DAILY [facility] Last Admin: 11/02/17 09:14 Dose: 81 mg Diphenhydramine HCl (Benadryl Capsule) 50 mg PO QHS PRN PRN Reason: SLEEP Last Admin: 11/01/17 21:23 Dose: 50 mg Enoxaparin Sodium (Lovenox) 40 mg SC DAILY [facility] Last Admin: 11/02/17 09:14 Dose: 40 mg Fluticasone Propionate (Flonase) 2 spray NA DAILY [facility] Last Admin: 11/02/17 09:16 Dose: 2 spray Hydromorphone HCl (Dilaudid) 0.5 mg IVP Q4H PRN PRN Reason: PAIN - MOD TO SEVERE (5-10) Ertapenem 1 g/ Sodium Chloride 100 mls @ 200 mls/hr IVPB Q24H [facility] Last Infusion: 11/01/17 16:00 Dose: Infused Sodium Chloride () 1,000 mls @ 100 mls/hr IV .Q10H PRN PRN Reason: LARGE VOLUME IV Ibuprofen (Motrin 200mg) 600 mg PO Q8H PRN PRN Reason: PAIN - MODERATE (5-7) Last Admin: 11/02/17 06:59 Dose: 600 mg Loratadine (Claritin) 10 mg PO DAILY [facility] Last Admin: 11/02/17 09:14 Dose: 10 mg Losartan Potassium (Cozaar) 50 mg PO DAILY [facility] Last Admin: 11/02/17 09:14 Dose: 50 mg Ondansetron HCl (Zofran) 4 mg IVP Q4H PRN PRN Reason: NAUSEA Last Admin: 10/31/17 19:12 Dose: 4 mg Pantoprazole Sodium (Protonix) 40 mg PO DAILYAC [facility] Last Admin: 11/02/17 06:58 Dose: 40 mg Psyllium Hydrophilic Mucilloid (Metamucil Pwd) 3.4 gm PO DAILY [facility] Ranitidine HCl (Zantac) 150 mg PO QHS PRN PRN Reason: HEARTBURN Last Admin: 11/01/17 21:23 Dose: 150 mg Simvastatin (Zocor) 20 mg PO QHS [facility] Last Admin: 11/01/17 21:23 Dose: 20 mg AMI Plan - Labs Result Diagrams: 11/02/17 06:21 11/02/17 06:21
[2017-11-02] MEDS: PSYLLIUM HUSK/ASPARTAME 3.4 GM POWD.PACK PO SCH (14:37)
[2017-11-02] MEDS: 0.9 % SODIUM CHLORIDE 1000ML 1,000 ML IV PRN ×2 (14:38→22:16)
[2017-11-02] MEDS: ERTAPENEM SODIUM 1 G in 0.9 % SODIUM CHLORIDE 100ML 100 ML IVPB SCH (16:43)
[2017-11-02] MEDS: SIMVASTATIN 20 MG TABLET PO SCH (22:13)
[2017-11-03] MEDS: PANTOPRAZOLE SODIUM 40 MG TABLET PO SCH (06:19)
[2017-11-03] MEDS: IBUPROFEN 200 MG TABLET PO PRN (07:32)
[2017-11-03] MEDS: LOSARTAN POTASSIUM 25 MG TABLET PO SCH (09:42)
[2017-11-03] MEDS: PSYLLIUM HUSK/ASPARTAME 3.4 GM POWD.PACK PO SCH (09:42)
[2017-11-03] MEDS: ASPIRIN 81 MG TABEC PO SCH (09:42)
[2017-11-03] MEDS: LORATADINE 10 MG TABLET PO SCH (09:42)
[2017-11-03] MEDS: ENOXAPARIN 40 MG/0.4 ML SYR SC SCH (09:43)
--- NOTE | 2017-11-03 10:33 | Discharge Summary ---
Providers Discharge Summary Date: 11/03/17 Date of admission: 10/31/17 17:41 Expected Date of Discharge: 11/03/17 Attending physician: TAVARES NAPIER Consults: Consult Orders 11/01/17 08:12 Consult NOW Consulting Provider: LEE JOHNSON Physician Instructions: Reason For Exam: Diverticulitis Physical Exam - Vital Signs Vital Signs: Vital Signs - Last 24 Hrs Temp Pulse Resp BP BP Pulse Ox 11/03/17 10:00 97.5 F L 71 18 130/70 96 11/03/17 06:00 97.7 F 70 16 119/75 94 L 11/03/17 02:00 97.4 F L 64 16 137/73 96 11/02/17 22:00 98.6 F 71 16 138/75 96 11/02/17 21:00 16 11/02/17 17:12 98.7 F 71 16 147/78 96 - General General Appearance: Alert, Oriented x3, Cooperative, No acute distress - Head Head exam: Normal inspection - Eye Eye exam: Normal appearance, PERRL Pupils: Normal accommodation - ENT ENT exam: Normal exam, Mucous membranes moist, Normal external ear exam, Normal orophraynx, TM's normal bilaterally Ear exam: Normal external inspection. negative: External canal tenderness Nasal Exam: Normal inspection. negative: Discharge, Sinus tenderness Mouth exam: Normal external inspection, Tongue normal Teeth exam: Normal inspection. negative: Dental caries Throat exam: Normal inspection. negative: Tonsillar erythema, Tonsillar exudate - Neck Neck exam: Normal inspection, Full ROM. negative: Tenderness - Respiratory Respiratory exam: Normal lung sounds bilaterally. negative: Respiratory distress - Cardiovascular Cardiovascular Exam: Regular rate, Normal rhythm, Normal heart sounds - GI/Abdominal GI/Abdominal exam: Soft, Normal bowel sounds. negative: Tenderness - Rectal Rectal exam: Deferred - exam: Deferred - Extremities Extremities exam: Normal inspection, Full ROM, Normal capillary refill. negative: Tenderness - Back Back exam: Reports: Normal inspection, Full ROM. Denies: Muscle spasm, Rash noted, Tenderness - Neurological Neurological exam: Alert, Normal gait, Oriented X3, Reflexes normal - Psychiatric Psychiatric exam: Normal affect, Normal mood - Skin Skin exam: Dry, Intact, Normal color, Warm Hospitalization - Hospitalization Admission Diagnosis: acute diverticulitis - Problem List/Discharge Diagnosis (1) Diverticulitis Current Visit: Yes Status: Acute Base Code: K57.92 - DVTRCLI OF INTEST, PART UNSP, W/O PERF OR ABSCESS W/O BLEED Comment: 11/03/17: -Sigmoid diverticulitis demonstrated on abdomen/pelvic CT from 10/31/17 -Invanz 1g q24h (d/c'd flagyl per pharmacy, not necessary with invanz coverage) - convert to Flagyl 500mg TID x 10 days and Cefpodoxime 200mg BID x 10 days -0.5mg Dilaudid IVP q4h prn and 1000mg tylenol q6h prn for pain management during in patient stay - [place] 5/325 1-2 tabs Q 4-6 hour PRN at discharge -diet advanced to regular, tolerating PO intake but increase in loose stools, prn zofran for nausea -GI consult ordered, plan to follow up as outpatient 11/29 - Follow up PCP 1-2 weeks - metamucil daily for increase loose stools - stool for c-diff stat for acute increased loose stools since antibiotic use (2) Nodule of right lung Current Visit: Yes Status: Acute Base Code: R91.1 - SOLITARY PULMONARY NODULE Comment: 11/03/17: -4mm nodule noted in right posterior costophrenic angle on CT -Recommend f/u CT of chest in 6 months or sooner to evaluate stability - recommend CT chest at PCP follow up as nodule was incidental finding on abd CT - patient aware and agrees with follow up plan (3) At risk for deep venous thrombosis Current Visit: Yes Status: Acute Base Code: Z91.89 - OTH PERSONAL RISK FACTORS, NOT ELSEWHERE CLASSIFIED Comment: 11/03/17: -Lovenox 40mg SC qhs for DVT prophylaxis (4) Full code status Current Visit: Yes Status: Acute Base Code: Z78.9 - OTHER SPECIFIED HEALTH STATUS Comment: 11/03/17: -Pt. is a full code - Hospitalization Course Disposition: Home, Self-Care Hospital Course: Mrs. Mackey is a 61 year-old female who presented to the ED on 10/31/17 with c/o left lower quadrant abdominal pain, chills, and nausea. Her history included diverticulitis, HTN, seizures, IBS, GERD, hyperlipidemia, arthritis, second-hand smoke exposure, and anxiety. In the ED, her vital signs and labs were unremarkable. UA negative. Abdominal CT demonstrated acute diverticulitis of the sigmoid colon. A nonspecific 4mm nodule was seen in her right posterior costophrenic angle- f/u CT in 6 months was recommended to monitor stability. She was admitted for management of diverticulitis with IV antibiotics and pain management. 11/01/17 0900: Pt. is resting in bed. She states her LLQ pain is a 7/10. She reports that morphine gave her a headache and tylenol was ineffective. She states that she is tolerating clears, but experiencing worse pain when she passes gas. She states she has not had a bm since Monday 10/30. She states that she has had several flares of her diverticulitis over the last 10 years and she is not established with GI. Will order 0.5mg dilaudid IVP q4h prn pain. Will continue IVF 0.9%NS 100ml/hr. Continue Invanz 1gm IV q24h. Continue clear fluids. Plan GI consult today- Dr. Johnson. 11/03/17 1030- Patient treated with IV Invanz 1gm q 24 hours for recurrent diverticulitis. Tolerated treatment without adverse effects. Day 2 of inpatient stay she did develop an increase of loose stools, no hematochezia and increase in LUQ abdominal pain and cramping associated with moving bowels. Stools sent for c-diff culture and were negative. Patient admitted to drinking large amounts of apple juice. After stopping apple juice patient reports has had no further loose stool or abdominal pain. Reports previous headache she had has resolved. Denies nausea or vomiting. Feels ready for discharge. She is in stable condition Procedures: Imaging and X-Rays 10/31/17 15:19 ABDOMEN/PELVIS WO CONTRAST [CT] Stat Abnormal Labs: Abnormal Lab Results 10/31/17 10/31/17 11/01/17 Range/Units 14:40 14:40 06:19 Hgb 11.1 L (11.6-16.0) gm/dl MCHC 31.2 L (32-36) g/dl MPV 11.5 H 11.2 H (7.4-10.4) fl Gran % (47-80) % Potassium 3.2 L (3.4-4.5) mmol/L BUN 7 L (8-23) mg/dL Calcium (8.8-10.2) mg/dL Total Bilirubin 1.70 H (0.2-1.0) mg/dL Total Protein (6.6-8.7) g/dL Albumin (4.0-5.0) g/dL 11/01/17 11/02/17 11/02/17 Range/Units 06:19 06:21 06:21 Hgb 11.3 L (11.6-16.0) gm/dl MCHC 31.3 L (32-36) g/dl MPV 11.2 H (7.4-10.4) fl Gran % 43.5 L (47-80) % Potassium (3.4-4.5) mmol/L BUN 6 L 5 L (8-23) mg/dL Calcium 8.4 L 8.4 L (8.8-10.2) mg/dL Total Bilirubin (0.2-1.0) mg/dL Total Protein 5.9 L (6.6-8.7) g/dL Albumin 3.6 L (4.0-5.0) g/dL Condition at Discharge: (2) Stable Discharge Medications - Discharge Medications Prescriptions: Cefpodoxime Proxetil 200 mg PO BID #20 tablet Hydrocodone/Acetaminophen [[place] 5-325 Tablet] 1 each PO QID PRN #10 tablet PRN Reason: Abdominal Pain Metronidazole [Flagyl] 500 mg PO TID #30 tablet Home Medications: Ambulatory Orders Aspirin [Aspirin EC] 81 mg PO DAILY 09/18/14 [Last Taken Unknown] Cetirizine HCl [Zyrtec] 10 mg PO DAILY 09/18/14 [Last Taken Unknown] Cholecalciferol (Vitamin D3) [Vitamin D3] 1,000 unit PO DAILY 09/18/14 [Last Taken Unknown] Ascorbic Acid [Vitamin C] 500 mg PO DAILY 12/27/14 [Last Taken Unknown] Ibuprofen 800 mg PO ASDIR cap 06/12/15 [Last Taken Unknown] Acetaminophen [Tylenol 500Mg Tab] 1,000 mg PO Q6H PRN tablet 11/03/17 [Last Taken Unknown] Cefpodoxime Proxetil 200 mg PO BID #20 tablet 11/03/17 [Last Taken Unknown] Hydrocodone/Acetaminophen [[place] 5-325 Tablet] 1 each PO QID PRN #10 tablet 04/22 [Last Taken Unknown] Ibuprofen 200 mg Tablet [Motrin] 600 mg PO Q8H PRN tablet 11/03/17 [Last Taken Unknown] Loratadine [Claritin] 10 mg PO DAILY tablet 11/03/17 [Last Taken Unknown] Metronidazole [Flagyl] 500 mg PO TID #30 tablet 11/03/17 [Last Taken Unknown] Psyllium Husk/Aspartame [Metamucil Pwd] 3.4 gm PO DAILY powd.pack 11/03/17 [ Last Taken Unknown] Discharge Plan - Discharge Instructions Activity at Discharge: Resume Usual Activities As Tolerated Diet at Discharge: Other (Low residue, high fiber) Additional Instructions: Follow up with [facility] as scheduled on 11/10/17. Quality Measures - Quality Measures Quality Measures: Documentation of Current Medications in Medical Record, Screening for High Blood Pressure and F/U Documented - Current Medications Quality Measure: Measure #130: Documentation of Current Medications Documentation of Current Medications: <Current Medications Documented/Reviewed> [G8427] - Blood Pressure Screening Quality Measure: Screening for High Blood Pressure and Follow-Up Documented Does Patient Have Any of the Following: Active Dx of HTN Blood Pressure Classification: Normal BP Reading Systolic Measurement: 110 Diastolic Measurement: 60 Screening for High Blood Pressure: Patient Exclusion, Hx of HTN [G9744] - Elder Abuse Suspicion Index EASI Reference Information: Lyle HOPKINS, Jason C, Yaritza D, Juany Stephenson.Development and validation of a tool to assist physicians identification of elder abuse: The Elder Abuse Suspicion Index (EASI ). Journal of Elder Abuse and Neglect, 2008; 20 (3): 276-300.
== END 2017-11-03 12:30 | disposition home or self-care (01) | DRG 392 ==
LOC: ER 14:14 → MEDSURG 17:41
PROVIDERS: ADMIT Internal Medicine; ATTEND Internal Medicine
DX: K57.92 Diverticulitis of intestine, part unspecified, without perforation or abscess without bleeding (principal); R91.1 Solitary pulmonary nodule; R11.0 Nausea; R50.9 Fever, unspecified; I10 Essential (primary) hypertension; E78.5 Hyperlipidemia, unspecified; R56.9 Unspecified convulsions; K58.9 Irritable bowel syndrome, unspecified; K21.9 Gastro-esophageal reflux disease without esophagitis; M19.90 Unspecified osteoarthritis, unspecified site
CPT/HCPCS: 74176; 80048; 80053; 80076; 81003; 83690; 85025; 87493; 99223; 99233; 99239; J1650; J2270; J2405